=== PATIENT | male | born 1980 | race Caucasian/White ===

== ENCOUNTER 2016-07-02 15:47 | Emergency (ER) | payer MEDICAID, OTHER ==
[~2016-07-02 15:47] MED LIST: NEOMY SULF/POLYMYX B SULF/HC 10ML OTIC SOLUTION EACHEAR SCH
[2016-07-02 15:58] VITALS: BP 131/90; PULSE 77; RESP 16; TEMP 98.2; O2SAT 96
--- NOTE | 2016-07-02 16:11 | EDPHY ---
H & P Time Seen by Provider: 07/02/16 16:05 HPI/ROS: CHIEF COMPLAINT: Left ear painx1 week HISTORY OF PRESENT ILLNESS: 36-year-old homeless male complaining of left otalgia, otorrhea for the past 1 week. No headache. No odontalgia. No dysphagia or odynophagia. No nuchal rigidity. PHYSICAL EXAM (Prior to examination, patient consented to physical exam, hands were washed and my usual and customary physical exam procedures followed) 1) GENERAL: Well-developed, well-nourished, alert and oriented. Appears to be in no acute distress. 2) HEAD: Normocephalic 3) HEENT: sclera anicteric. Right ear clear with no evidence of otitis media or externa. Left ear: Crusted discharge at the EAC meatus. Pain with movement of the auricle. The external auditory canal is edematous with no debris, pain with placement of the speculum. The tympanic membrane is grossly intact with no evidence of otitis media. The mastoid bilaterally nontender non boggy. 4) LUNGS: Breathing comfortably. Smoking Status: Current every day smoker Constitutional: Initial Vital Signs Temperature (C) 36.8 C 07/02/16 15:56 Heart Rate 77 07/02/16 15:56 Respiratory Rate 16 07/02/16 15:56 Blood Pressure 131/90 H 07/02/16 15:56 O2 Sat (%) 96 07/02/16 15:56 O2 Delivery Mode Room Air Allergies/Adverse Reactions: No Allergies Allergy (Unknown, Verified 07/02/16 15:55) Home Medications: Medication Instructions Recorded Neomy Sulf/Polymyx B Sulf/Hc 3 drops EACHEAR QID #1 bottle 07/02/16 [Cortisporin Otic (RX)] MDM/Departure - MDM ED Course/Re-evaluation: This is a homeless male with evidence of left otitis externa. No evidence of left otitis media. No evidence of malignant otitis externa. Doubt mastoiditis. He is prescribed Cortisporin otic which is filled via the hospital [facility]. [facility]. Usual customary ENT precautions provided - Depart Disposition: Home, Routine, Self-Care Clinical Impression: Left otitis externa Qualifiers: Otitis externa type: other infective Chronicity: acute Qualifier Code: (H60.392 ) Other infective otitis externa, left ear Condition: Good Instructions: Otitis Externa (ED) Prescriptions: Neomy Sulf/Polymyx B Sulf/Hc [Cortisporin Otic (RX)] 3 drops EACHEAR QID #1 bottle Referrals: [facility] [Outside] - 1-2 days without fail
== END 2016-07-02 16:46 | disposition home or self-care (01) ==
DX: H60.392 Other infective otitis externa, left ear (principal); F17.200 Nicotine dependence, unspecified, uncomplicated

== ENCOUNTER 2016-10-29 04:45 | Emergency (ER) | payer MEDICAID ==
[2016-10-29 04:52] VITALS: BP 143/83; PULSE 89; RESP 16; TEMP 98.2; O2SAT 91
[2016-10-29] MEDS ORDERED: chlordiazePOXIDE 25 MG CAP ONE (05:08)
[2016-10-29] MEDS ORDERED: CHLORDIAZEPOXIDE 25MG PREPK#6 BTL TAKEHOME ONE ×2 (05:09→05:12)
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
[2016-10-29] MEDS ORDERED: chlordiazePOXIDE 25 MG CAP PO ONE (05:12)
== END 2016-10-29 05:15 | disposition home or self-care (01) ==
DX: F10.230 Alcohol dependence with withdrawal, uncomplicated (principal); F17.200 Nicotine dependence, unspecified, uncomplicated

== ENCOUNTER 2016-12-05 18:06 | Emergency (ER) | payer MEDICAID ==
--- NOTE | 2016-12-05 18:27 | CPEKG ---
Heart Rate: 93 RR Interval: 645 P-R Interval: 152 QRSD Interval: 104 QT Interval: 356 QTC Interval: 443 P Snyder: 66 QRS Snyder: 31 T Wave Snyder: 43 EKG Severity - NORMAL ECG - EKG Impression: SINUS RHYTHM Electronically Signed By: Ayala Monroy 05-Dec-2016 22:49:29
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
[2016-12-05 18:52] VITALS: BP 123/89; PULSE 90; RESP 16; TEMP 97.3; O2SAT 90
== END 2016-12-05 18:54 | disposition home or self-care (01) ==
LOC: EDUNIT#
DX: F10.129 Alcohol abuse with intoxication, unspecified (principal); F17.200 Nicotine dependence, unspecified, uncomplicated

== ENCOUNTER 2017-04-22 22:19 | Emergency (ER) | payer MEDICAID ==
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
[2017-04-22 22:41] VITALS: BP 136/89; PULSE 78; RESP 18; TEMP 98.4; O2SAT 95
== END 2017-04-22 22:45 | disposition home or self-care (01) ==
DX: F10.129 Alcohol abuse with intoxication, unspecified (principal); F17.200 Nicotine dependence, unspecified, uncomplicated

== ENCOUNTER 2017-07-25 21:10 | Emergency (ER) | payer MEDICAID ==
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
[2017-07-25 21:26] VITALS: RESP 18; TEMP 98.1
[2017-07-26] MEDS ORDERED: CHLORDIAZEPOXIDE 25MG PREPK#6 BTL TAKEHOME ONE (05:19)
[2017-07-26 05:24] VITALS: BP 113/60; PULSE 101; O2SAT 94
== END 2017-07-26 05:24 | disposition home or self-care (01) ==
LOC: EDUNIT#
DX: S00.81XA Abrasion of other part of head, initial encounter (principal); F10.920 Alcohol use, unspecified with intoxication, uncomplicated; F17.200 Nicotine dependence, unspecified, uncomplicated; V48.6XXA Car passenger injured in noncollision transport accident in traffic accident, initial encounter; Y92.410 Unspecified street and highway as the place of occurrence of the external cause; Y99.8 Other external cause status

== ENCOUNTER 2017-07-31 19:59 | Emergency (ER) | payer MEDICAID ==
--- NOTE | 2017-07-31 19:47 | EDPHY ---
Medical Decision Making ED Course/Re-evaluation: CHIEF COMPLAINT: Psychiatric evaluation HISTORY OF PRESENT ILLNESS: must have 4 elements: Location, Quality, Severity , Duration, Timing, Context, Modifying Factors, Associated Signs and Symptoms REVIEW OF SYSTEMS: A 10 point review of systems was performed and is negative with the exception of the elements mentioned in the history of present illness. PHYSICAL EXAM: General Appearance: Alert, well hydrated, appropriate, and non-toxic appearing. Head: Atraumatic without scalp tenderness or obvious injury Eyes: Pupils equal, round, reactive to light and accommodation, EOMI, no trauma , no injection. Ears: Clear bilaterally, no perforation, normal landmarks Nose: Atraumatic, no rhinorrhea, clear. Throat: There is no erythema or exudates, no lesions, normal tonsils, mucus membranes moist. Neck: Supple, 2+ carotid upstroke, nontender, no lymphadenopathy. Respiratory: No retractions, no distress, no wheezes, and no accessory muscle use. Lungs are clear to auscultation bilaterally. Cardiovascular: Regular rate and rhythm, no murmurs, rubs, or gallops. Bilateral carotid, radial, dorsalis pedis, and posterior tibial pulses intact. Good capillary refill all extremities. Gastrointestinal: Abdomen is soft, nontender, non-distended, no masses, no rebound, no guarding, no peritoneal signs. Musculoskeletal: Normal active ROM of all extremities, atraumatic. Neurological: Alert, appropriate, and interactive. The patient has normal DTRs and non-focal cranial nerves, motor, sensory, and cerebellar exam. Skin: No rashes, good turgor, no nodules on palpation. Past medical history: Past surgical history: Family history: Social history: DIFFERENTIAL DIAGNOSIS: The differential diagnosis for the patient's depression included but was not limited to functional and major depression, situational depression, medication side effect, drugs, and alcohol abuse. MEDICAL DECISION MAKING: Patient is in no acute distress and is hemodynamically stable. We are awaiting psychiatric team's evaluation. Patient has known history of psychiatric disorders and is here for evaluation.
[2017-07-31] MEDS ORDERED: HALOPERIDOL LACT 5 MG/ML INJ ONE (20:10)
[2017-07-31] MEDS ORDERED: HALOPERIDOL LACT 5 MG/ML INJ IM ONE (20:11)
--- NOTE | 2017-07-31 20:13 | EDPHY ---
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 PSH- R FEMUR W/ HARDWARE, RECONSTRUCTIVE JAW, SAMANTHA--- ALL R/T TRAUMA - Social History Smoking Status: Current every day smoker Time Seen by Provider: 07/31/17 20:03 HPI/ROS: CHIEF COMPLAINT: M1 suicidal ideation HISTORY OF PRESENT ILLNESS: 37-year-old male history of alcoholism arrives from [facility] for acute agitation, suicidal ideation, suspected alcohol intoxication. He is agitated, yelling, cursing, threatening physical violence. PRIMARY CARE PROVIDER: REVIEW OF SYSTEMS: A ten point review of systems was performed and is negative with the exception of the items mentioned in the HPI PAST MEDICAL & SURGICAL HISTORY: History of traumatic brain injury. History of alcoholism. SOCIAL HISTORY: Admits to positive alcohol use PHYSICAL EXAM (Prior to examination, patient consented to physical exam, hands were washed and my usual and customary physical exam procedures followed) 1) GENERAL: Well-developed, well-nourished, alert and oriented. Agitated, 2) HEAD: Normocephalic, atraumatic, no raccoon eyes no Galo sign. 3) HEENT: Pupils equal, round, reactive to light bilaterally. Sclera anicteric. 4) NECK: Full range of motion, no meningeal signs. 5) LUNGS: Clear auscultation bilaterally, no wheezes, no rhonchi, no retractions. 6) HEART: Regular rate and rhythm, no murmur, no heave, no gallop. 7) ABDOMEN: No guarding, no rebound, no focal tenderness, negative McBurney's, negative Ellington's, negative Rovsing's, negative peritoneal sign, 8) MUSCULOSKELETAL: Moving all extremities, no focal areas of tenderness, no obvious trauma. No peripheral edema or discoloration. 9) BACK: No CVA tenderness, no midline vertebral tenderness, no fluctuance, no step-off, no obvious trauma, no visual or palpable abnormality. 10) SKIN: No rash, no petechiae. 11) Psychiatric: Patient is oriented X 3, agitated cursing yelling. DIFFERENTIAL DIAGNOSIS: In no particular orderincluding but not limited to hypoglycemia, infectious process, electrolyte abnormality, head injury and intoxicants. (Bethanie Luna) Constitutional: Initial Vital Signs Temperature (C) 36.5 C 07/31/17 20:22 Heart Rate 122 H 07/31/17 20:22 Respiratory Rate 18 07/31/17 20:22 Blood Pressure 141/94 H 07/31/17 20:22 O2 Sat (%) 93 07/31/17 20:22 O2 Delivery Mode Room Air Allergies/Adverse Reactions: No Allergies Allergy (Unknown, Verified 07/25/17 21:26) Home Medications: Medication Instructions Recorded Albuterol [Ventolin Hfa Inhaler] 200 puffs 07/25/17 Medical Decision Making ED Course/Re-evaluation: 8:12 p.m.: This patient is agitated, yelling, threatening physical violence against myself and the ER staff. IM Haldol will be ordered. He appears to be acutely intoxicated as well. He smells of alcohol. 9:43 p.m.: Alcohol level 436 at this time. He will need to sober in the emergency department prior to mental health evaluation 1:00 a.m.: Care turned over to Dr. Stoddard at this time, patient calm, sleeping, sobering (Behtanie Luna) Other Provider: 0100 care assumed by me from SUZI Luna pending sober evaluation. [address] patient signed out to Dr. Gregorio pending sober evaluation. No issues during my care this patient over. (Isaac Stoddard) I assumed care of this patient from Dr. Stoddard at 7:00 a.m.. Patient has continued to sober throughout my shift. We have been watching him to ensure he does not develop alcohol withdrawal. Urine sample was obtained and the patient's urine tox is negative. The patient had a repeat breath performed at 3:00 p.m.. Alcohol level is 0.090. Patient will need to continue to sober. He will have evaluation by mental health when his alcohol level is less than 0.050. Patient's care will be assumed by Dr. Mahan at 4:00 p.m.. (Becki Gregorio) - Data Points Laboratory Results: Laboratory Results 07/31/17 20:50 07/31/17 20:50 08/01/17 10:55 Urine Opiates Screen NEGATIVE (NEGATIVE) Urine Barbiturates NEGATIVE (NEGATIVE) Ur Phencyclidine Scrn NEGATIVE (NEGATIVE) Ur Amphetamine Screen NEGATIVE (NEGATIVE) U Benzodiazepines Scrn NEGATIVE (NEGATIVE) Urine Cocaine Screen NEGATIVE (NEGATIVE) U Marijuana (THC) Screen NEGATIVE (NEGATIVE) Medications Given: Discontinued Medications Haloperidol Lactate (Haldol Injection) 10 mg IM EDNOW ONE Stop: 07/31/17 20:12 Last Admin: 07/31/17 20:00 Dose: 10 mg Departure - Departure Referrals: Patient,NotPresent [Unknown] - As per Instructions
[2017-07-31 21:21] LABS: PLATELET COUNT 165 10^3/uL (150-400)
[2017-08-01 08:28] VITALS: RESP 16; O2SAT 98
[2017-08-01 18:57] VITALS: BP 112/44; PULSE 89; TEMP 96.8
== END 2017-08-01 18:56 | disposition home or self-care (01) ==
LOC: EDUNIT#
DX: F10.20 Alcohol dependence, uncomplicated (principal); F17.200 Nicotine dependence, unspecified, uncomplicated
CPT/HCPCS: 80305; G0480; J1630

== ENCOUNTER 2017-08-03 23:35 | Emergency (ER) | payer MEDICAID ==
--- NOTE | 2017-08-03 23:49 | EDPHY ---
H & P Time Seen by Provider: 08/03/17 23:44 HPI/ROS: CHIEF COMPLAINT: Alcohol intoxication HISTORY OF PRESENT ILLNESS: The patient is brought in by police after being found in a coffee shop bathroom with altered mental status. The patient smells of alcohol and has multiple prior ER visits for alcohol intoxication. He was unable to walk. He is brought in without any complaint. Patient denies any injuries, denies loss of consciousness, denies any recent trauma. Patient denies coingestion, patient denies suicidal or homicidal behavior. REVIEW OF SYSTEMS: Constitutional: No fever, no chills. Eyes:No visual changes. ENT: No sore throat. Respiratory: No cough, no shortness of breath. Cardiac: No chest pain. Gastrointestinal: No abdominal pain, vomiting or diarrhea. Genitourinary: No hematuria. Musculoskeletal: No back pain. Skin: No rashes. Neurological: No headache. PAST MEDICAL HISTORY: Multiple ER visits for alcohol-related complaints PAST SURGICAL HISTORY: None SOCIAL HISTORY: Alcohol abuse PHYSICAL EXAM: General Appearance: Alert, well hydrated, appropriate, and non-toxic appearing. Head: Atraumatic without scalp tenderness or obvious injury Eyes: Pupils equal, round, reactive to light, no injection. Ears: Clear bilaterally, no perforation, normal landmarks Nose: Atraumatic, no rhinorrhea, clear. Throat: mucus membranes moist. Neck: Supple, non-tender, no lymphadenopathy. Respiratory: No retractions, no distress, no wheezes, and no accessory muscle use. Lungs are clear to auscultation bilaterally. Cardiovascular: Regular rate and rhythm, no murmurs, rubs, or gallops. Gastrointestinal: Abdomen is soft, non-tender, non-distended Musculoskeletal: Normal active ROM of all extremities, atraumatic. Neurological: Alert, appropriate, and interactive. Moves all extremities equally. Skin: No rashes, good turgor, no nodules on palpation. MEDICAL DECISION MAKING: I serially examined this patient since the patient's arrival here in the emergency department. The patient continues to become more and more sober with each examination. I serially questioned the patient and the patient's story given initially has not changed. The patient still denies any trauma, any head injury, and any illicit drug use. At this point, the patient is walking the department freely and is clinically sober. The [facility] is not [facility] the [facility]. Thus when he was able to walk he was discharged to the street. 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 PSH- R FEMUR W/ HARDWARE, RECONSTRUCTIVE JAW, SAMANTHA--- ALL R/T TRAUMA - Social History Smoking Status: Current every day smoker Constitutional: Initial Vital Signs Temperature (C) 36.3 C 08/03/17 23:40 Heart Rate 86 08/03/17 23:40 Respiratory Rate 16 08/03/17 23:40 Blood Pressure 153/85 H 08/03/17 23:40 O2 Sat (%) 90 L 08/03/17 23:40 O2 Delivery Mode Room Air O2 (L/minute) 1 Allergies/Adverse Reactions: No Allergies Allergy (Unknown, Verified 08/03/17 23:52) Home Medications: Medication Instructions Recorded Albuterol [Ventolin Hfa Inhaler] 200 puffs IH 07/25/17 Departure - Departure Disposition: Home, Routine, Self-Care Clinical Impression: Alcoholic intoxication Condition: Good Instructions: Alcohol Intoxication (ED), Abuse of Alcohol (ED) Referrals: [facility],. [Clinic] - As per Instructions
[2017-08-03 23:52] VITALS: RESP 16; TEMP 97.3
[2017-08-04 05:56] VITALS: BP 128/77; PULSE 86; O2SAT 94
== END 2017-08-04 05:55 | disposition home or self-care (01) ==
DX: F10.129 Alcohol abuse with intoxication, unspecified (principal); F17.200 Nicotine dependence, unspecified, uncomplicated

== ENCOUNTER 2017-08-04 10:30 | Emergency (ER) | payer MEDICAID ==
[2017-08-04 10:35] VITALS: BP 143/100; PULSE 95; RESP 18; TEMP 97.2
--- NOTE | 2017-08-04 10:36 | EDPHY ---
H & P Stated Complaint: ETOH, [facility] hold Time Seen by Provider: 08/04/17 10:32 HPI/ROS: CHIEF COMPLAINT: "I've been drinking" HISTORY OF PRESENT ILLNESS: 37-year-old homeless male arrives via police for complaints of alcohol use. He denies suicidal or homicidal ideation. Patient has been seen the ER previously for similar most recently 24 hr ago. Denies trauma. Denies complaints of pain. Denies fall. Denies self-injury. Denies chest pain. Denies dyspnea. Denies nausea or vomiting. REVIEW OF SYSTEMS: A ten point review of systems was performed and is negative with the exception of the items mentioned in the HPI PAST MEDICAL & SURGICAL HISTORY: Alcoholism SOCIAL HISTORY: Admits to positive alcohol PHYSICAL EXAM (Prior to examination, patient consented to physical exam, hands were washed and my usual and customary physical exam procedures followed) 1) GENERAL: Poorly kept, smells of alcohol, answering questions appropriately, observed ambulating from the ambulance [place] with stable steady gait without assistance 2) HEAD: Normocephalic, atraumatic 3) HEENT: Pupils equal, round, reactive to light bilaterally. Sclera anicteric. No raccoon eyes no Galo sign. Nasopharynx, oropharynx, clear, no lesions. Ears bilaterally with normal tympanic membranes. 4) NECK: Full range of motion, no meningeal signs. 5) LUNGS: Clear auscultation bilaterally, no wheezes, no rhonchi, no retractions. 6) HEART: Regular rate and rhythm, no murmur, no heave, no gallop. 7) ABDOMEN: No guarding, no rebound, no focal tenderness, 8) MUSCULOSKELETAL: Moving all extremities, no focal areas of tenderness 9) BACK: No visual or palpable abnormality. 10) SKIN: No rash, no petechiae. 11) Psychiatric: Patient is oriented X 3, there is no agitation. 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 PSH- R FEMUR W/ HARDWARE, RECONSTRUCTIVE JAW, SAMANTHA--- ALL R/T TRAUMA - Social History Smoking Status: Current every day smoker Constitutional: Initial Vital Signs Temperature (C) 36.2 C 08/04/17 10:32 Heart Rate 95 08/04/17 10:32 Respiratory Rate 18 08/04/17 10:32 Blood Pressure 143/100 H 08/04/17 10:32 O2 Sat (%) 95 08/04/17 10:32 O2 Delivery Mode Room Air O2 (L/minute) 2 Allergies/Adverse Reactions: No Allergies Allergy (Unknown, Verified 08/03/17 23:52) Home Medications: Medication Instructions Recorded Albuterol [Ventolin Hfa Inhaler] 200 puffs 07/25/17 Medical Decision Making ED Course/Re-evaluation: Care of patient under supervision of primary Supervising physician Dr Rodarte. At 11:13 a.m. The patient is awake and alert oriented person place time events, clear speech pattern, stable steady gait, clinically sober, answering questions appropriately, pleasant, calm, laughing, walked out of the emergency department. Doubt delirium tremens. he did not want to wait for aftercare instructions. Departure - Departure Disposition: Home, Routine, Self-Care Clinical Impression: Alcoholic intoxication Qualifiers: Complication of substance-induced condition: uncomplicated Qualified Code(s): F10.920 - Alcohol use, unspecified with intoxication, uncomplicated Condition: Good Instructions: Abuse of Alcohol (ED) Referrals: [facility],. [Clinic] - As per Instructions
[2017-08-04 10:44] VITALS: O2SAT 97
== END 2017-08-04 11:23 | disposition home or self-care (01) ==
DX: F10.920 Alcohol use, unspecified with intoxication, uncomplicated (principal); F17.200 Nicotine dependence, unspecified, uncomplicated

== ENCOUNTER 2017-08-04 15:19 | Emergency (ER) | payer MEDICAID ==
--- NOTE | 2017-08-04 15:24 | EDPHY ---
H & P Smoking Status: Current every day smoker Time Seen by Provider: 08/04/17 15:21 HPI/ROS: CHIEF COMPLAINT: Found sleeping at [facility] HISTORY OF PRESENT ILLNESS: 37-year-old male history of homelessness, alcoholism, was seen the ER few hours ago for acute alcohol use, walked out of the ER. He arrives via police, not on [facility] hold after he was found sleeping at [facility]. He admits to continued alcohol use. He denies suicidal homicidal ideation. Denies hallucination. Denies trauma or fall. He does not want to go to the [facility]. REVIEW OF SYSTEMS: A ten point review of systems was performed and is negative with the exception of the items mentioned in the HPI PAST MEDICAL & SURGICAL HISTORY: Homelessness. Alcoholism. SOCIAL HISTORY:Positive alcohol use PHYSICAL EXAM (Prior to examination, patient consented to physical exam, hands were washed and my usual and customary physical exam procedures followed) 1) GENERAL: Poorly kept, smells of alcohol 2) HEAD: Normocephalic, atraumatic 3) HEENT: Pupils equal, round, reactive to light bilaterally. Sclera anicteric. No raccoon eyes no Galo sign. No rhinorrhea no otorrhea. 4) NECK: Full range of motion, no meningeal signs. 5) LUNGS: Clear auscultation bilaterally, no wheezes, no rhonchi, no retractions. 6) HEART: Regular rate and rhythm, no murmur, no heave, no gallop. 7) ABDOMEN: No guarding, no rebound, no focal tenderness, 8) MUSCULOSKELETAL: Moving all extremities, no focal areas of tenderness, no obvious trauma. No peripheral edema or discoloration. 9) BACK: , no obvious trauma, no visual or palpable abnormality. 10) SKIN: No rash, no petechiae. 11) Psychiatric: Patient is oriented X 3, there is no agitation. DIFFERENTIAL DIAGNOSIS: In no particular include but limited to polysubstance abuse, acute alcohol use, trauma (Jeremy,Bethanie Edwina) Constitutional: Initial Vital Signs Temperature (C) 36.7 C 08/04/17 15:25 Heart Rate 96 08/04/17 15:25 Blood Pressure 129/97 H 08/04/17 15:25 O2 Sat (%) 95 08/04/17 15:25 O2 Delivery Mode Room Air Allergies/Adverse Reactions: No Allergies Allergy (Unknown, Verified 08/03/17 23:52) Home Medications: Medication Instructions Recorded Albuterol [Ventolin Hfa Inhaler] 200 puffs IH 07/25/17 MDM/Departure - [facility] ED Course/Re-evaluation: 3:22 p.m.: This patient is not [facility] hold. He does not want to go to the [facility]. He admits to alcohol use. Doubt delirium tremens. No seizure. No signs of trauma. No indication for imaging or diagnostic studies. He will be observed for a period of time in the ER 3:36 p.m.: At this time the patient observed ambulating stable steady gait, clear speech pattern, alert oriented person place time events. He would like to be discharged. He does not want to wait for aftercare instructions. He was observed ambulating out of the emergency department. (Bethanie Luna) - Depart Disposition: Home, Routine, Self-Care Clinical Impression: Alcohol use Condition: Good Instructions: Abuse of Alcohol (ED) Additional Instructions: Please consider long-term sobriety from alcohol. Referrals: [facility],. [Clinic] - As per Instructions
[2017-08-04 15:29] VITALS: BP 129/97; PULSE 96; TEMP 98.1; O2SAT 95
== END 2017-08-04 15:39 | disposition home or self-care (01) ==
DX: F10.929 Alcohol use, unspecified with intoxication, unspecified (principal); F17.200 Nicotine dependence, unspecified, uncomplicated

== ENCOUNTER 2017-08-05 15:30 | Emergency (ER) | payer MEDICAID ==
--- NOTE | 2017-08-05 16:08 | EDPHY ---
H & P Smoking Status: Current every day smoker Time Seen by Provider: 08/05/17 15:49 HPI/ROS: CHIEF COMPLAINT: Alcohol intoxication HISTORY OF PRESENT ILLNESS: 37-year-old male presents to the emergency department by ambulance with acute alcohol intoxication. The patient has a known history of alcoholism. He has been here multiple times in the last few days. Patient denies suicidal or homicidal ideation. He admits to drinking a large amount of alcohol today. He denies any other substance abuse. No reported trauma. Denies chest pain or difficulty breathing. Denies abdominal pain. Denies headache. Denies neck or back pain. REVIEW OF SYSTEMS: Constitutional: No fever, no chills. Eyes: No double or blurry vision. ENT: No sore throat. Respiratory: No cough, no shortness of breath. Cardiac: No chest pain. Gastrointestinal: No abdominal pain, vomiting or diarrhea. Genitourinary: No dysuria. Musculoskeletal: No neck or back pain. Skin: No rashes. Neurological: No headache. (Herlinda Lunsford) Past Medical/Surgical History: Alcoholism (Herlinda Lunsford) Social History: Homeless (Herlinda Lunsford) Physical Exam: General Appearance: Alert, no distress. Heart rate 122, 90% room air, afebrile. Smells strongly of alcohol. Slurring words. No visible signs of trauma to his head. Eyes: Pupils equal and round. Extraocular motions are all intact. ENT: Mouth: Mucous membranes moist. Respiratory: No wheezing, rhonchi, or rales, lungs are clear to auscultation. Cardiovascular: Regular rate and rhythm. Gastrointestinal: Abdomen is soft and nontender, no masses, no rebound or guarding, bowel sounds normal. Neurological: Uncooperative, cannot determine. Skin: Warm and dry, no rashes. Musculoskeletal: Nontender to palpate along the cervical, thoracic or lumbar spine. Neck is supple. Extremities: Full range of motion and no peripheral edema. Psychiatric: no agitation. (Herlinda Lunsford) Constitutional: Initial Vital Signs Temperature (C) 36.4 C 08/05/17 15:44 Heart Rate 122 H 08/05/17 15:44 Respiratory Rate 16 08/05/17 15:44 Blood Pressure 135/95 H 08/05/17 15:44 O2 Sat (%) 90 L 08/05/17 15:44 O2 Delivery Mode Room Air O2 (L/minute) 3 Allergies/Adverse Reactions: No Allergies Allergy (Unknown, Verified 08/03/17 23:52) Home Medications: Medication Instructions Recorded Albuterol [Ventolin Hfa Inhaler] 200 puffs IH 07/25/17 Medical Decision Making - Diagnostics Imaging Results: Imaging Impressions Chest X-Ray 08/05/17 16:43 Impression: Poor inspiratory effort. Mild atelectasis or early infiltrate in the left lower lobe. ED Course/Re-evaluation: 37-year-old male presents to the emergency department with alcohol intoxication. The patient is not welcome at the [facility]. When the patient is clinically sober and can ambulate unassisted without complaints, he will be discharged. (Herlinda Lunsford) Differential Diagnosis: Altered mental status including but not limited to hypoglycemia, infectious process, electrolyte abnormality, head injury and intoxicants. (Herlinda Lunsford) Other Provider: PHYSICIAN DOCUMENTATION: The patient was evaluated and managed by the Physician Hired Worker and myself. I have reviewed the chart and agree with the findings and plan of care as documented. In addition, I examined the patient myself at 1642. History confirmed as history of alcohol ingestion. Physical findings as follows: Slurred speech, sleepy but awakens to voice. Was initially hypoxic, plan for chest x-ray. 1714: Chest x-ray personally interpreted shows hypoventilation otherwise negative. Plan for serial examinations until clinically sober. 2005: Alert, ambulatory, no medical complaints, not hypoxic. Not ataxic. Stable for discharge. I am the secondary supervising physician. (David Davis) Departure - Departure Disposition: Home, Routine, Self-Care Clinical Impression: Alcoholic intoxication Qualifiers: Complication of substance-induced condition: uncomplicated Qualified Code(s): F10.920 - Alcohol use, unspecified with intoxication, uncomplicated Condition: Good Instructions: Alcohol Intoxication (ED), Abuse of Alcohol (ED) Additional Instructions: Return if you develop change in symptoms or if you feel worse in any way. Referrals: [facility] [Outside] - As per Instructions
[2017-08-05 20:01] VITALS: BP 124/71; PULSE 98; RESP 18; TEMP 98.8; O2SAT 92
== END 2017-08-05 20:05 | disposition home or self-care (01) ==
LOC: EDUNIT#
DX: F10.920 Alcohol use, unspecified with intoxication, uncomplicated (principal); F17.200 Nicotine dependence, unspecified, uncomplicated

== ENCOUNTER 2017-08-07 16:54 | Emergency (ER) | payer MEDICAID ==
--- NOTE | 2017-08-07 16:56 | EDPHY ---
H & P Smoking Status: Current every day smoker Time Seen by Provider: 08/07/17 16:55 HPI/ROS: CHIEF COMPLAINT: Suspected alcohol use HISTORY OF PRESENT ILLNESS: 37-year-old male history of alcoholism, homelessness, arrives via police after was found sleeping outdoors admitted alcohol use. Patient denies suicidal or homicidal ideation. Denies hallucination. Admits to alcohol use. No trauma. No fall. No complaints of pain or discomfort. REVIEW OF SYSTEMS: A ten point review of systems was performed and is negative with the exception of the items mentioned in the HPI PAST MEDICAL & SURGICAL HISTORY: Alcoholism SOCIAL HISTORY: Admits to positive alcohol use PHYSICAL EXAM (Prior to examination, patient consented to physical exam, hands were washed and my usual and customary physical exam procedures followed) 1) GENERAL: Foul smelling, dirty, cursing. He was observed ambulating stable steady gait without assistance. He has clear speech pattern. Awake alert and oriented to person, place, time, events 2) HEAD: Normocephalic, atraumatic. No raccoon eyes no Galo sign. No rhinorrhea. No otorrhea. No hemotympanum. 3) HEENT: Pupils equal, round, reactive to light bilaterally 4) NECK: Full range of motion, no meningeal signs. 5) LUNGS: Clear auscultation bilaterally 6) HEART: Regular rate and rhythm, no murmur, no heave, no gallop. 7) ABDOMEN: [No guarding, no rebound, no focal tenderness,, 8) MUSCULOSKELETAL: Moving all extremities, no focal areas of tenderness, no obvious trauma. 9) BACK: , no midline vertebral tenderness 10) SKIN: No rash, no petechiae. 11) Psychiatric: Patient is oriented X 3, there is no agitation. DIFFERENTIAL DIAGNOSIS: In no particular orderincluding but not limited to hypoglycemia, infectious process, electrolyte abnormality, head injury and intoxicants. (Bethanie Luna) Constitutional: Initial Vital Signs Temperature (C) 36.8 C 08/07/17 16:56 Heart Rate 72 08/07/17 16:56 Respiratory Rate 16 08/07/17 16:56 Blood Pressure 126/80 H 08/07/17 16:56 O2 Sat (%) 92 08/07/17 16:56 O2 Delivery Mode Room Air Allergies/Adverse Reactions: No Allergies Allergy (Unknown, Verified 08/03/17 23:52) Home Medications: Medication Instructions Recorded Albuterol [Ventolin Hfa Inhaler] 200 puffs IH 07/25/17 MDM/Departure - [facility] ED Course/Re-evaluation: I reviewed this patient's old medical records. I am familiar with this patient. At this time he is observed ambulating stable steady gait, clear speech pattern awake alert oriented person place time events. He is clinically sober at this time. He is not welcome at the [facility]. He would like to be discharged. He was observed walking out of the emergency department. Care of patient under supervision of secondary supervising physician Dr Rodarte . (Bethanie Luna) PHYSICIAN DOCUMENTATION: The patient was evaluated and managed by the Physician Equipment Services Associate. My co- signature indicates that I have reviewed this chart and I agree with the findings and plan of care as documented. I am the secondary supervising physician. (Austin Rodarte) - Depart Disposition: Home, Routine, Self-Care Clinical Impression: Alcohol use Condition: Good Instructions: Abuse of Alcohol (ED) Additional Instructions: Please consider long-term sobriety. Referrals: [facility],. [Clinic] - As per Instructions
[2017-08-07 16:58] VITALS: BP 126/80; PULSE 72; RESP 16; TEMP 98.2; O2SAT 92
== END 2017-08-07 17:06 | disposition home or self-care (01) ==
DX: F10.99 Alcohol use, unspecified with unspecified alcohol-induced disorder (principal); F17.200 Nicotine dependence, unspecified, uncomplicated

== ENCOUNTER 2017-08-07 20:25 | Emergency (ER) | payer MEDICAID ==
--- NOTE | 2017-08-07 21:52 | EDPHY ---
General - History Smoking Status: Current every day smoker Time Seen by Provider: 08/07/17 20:48 Narrative: CHIEF COMPLAINT: Alcohol intoxication HISTORY OF PRESENT ILLNESS: Patient arrives by EMS with reports of acute alcohol intoxication. He does admit to drinking multiple sources of alcohol today but does not remember any quantity. He has been drinking throughout the day since discharge home from this facility. He has no complaints of pain of any kind. He is only asking for food and something to drink. He says that he does not want to be here. REVIEW OF SYSTEMS: Ten systems reviewed and are negative unless otherwise noted in the HPI PCP: [facility] SPECIALISTS: None PAST MEDICAL HISTORY: Alcohol abuse PAST SURGICAL HISTORY: Denies any surgeries SOCIAL HISTORY: Daily alcohol use. Occasional smoker. Currently homeless FAMILY HISTORY: Noncontributory EXAMINATION General Appearance: Alert, no distress. Well-developed well-nourished Head: normocephalic, atraumatic Eyes: Pupils equal and round, no conjunctival pallor or injection ENT, Mouth: Mucous membranes moist Neck: Normal inspection, supple, non-tender Respiratory: Mild rhonchi. No wheezing or crackles Cardiovascular: Regular rate and rhythm. no murmur Gastrointestinal: Abdomen is soft and nontender Back: non-tender, no bony abnormalities Neurological: A&O, nonfocal, normal gait Skin: Warm and dry, no rash no petechiae or purpura Extremities: Nontender, no pedal edema Psychiatric: Mood and affect normal DIFFERENTIAL DIAGNOSES: Including but not limited to acute alcohol intoxication, chronic alcohol dependency, alcohol abuse MDM: 9:00 p.m. Acute alcohol intoxication in an alcoholic patient. He is well-known to this emergency department was seen earlier today. No complaints of any kind other than asking for food. He does have a strong odor of alcohol about him. He was at 1st refusing a breathalyzer treatment, but he is not consented to do this. He has been agitated and requiring multiple security officers. I informed him that he cannot behavior like this and he apologize and agrees to rest 10:30 p.m. Patient is resting comfortably in his room. 11:30 p.m. At This point patient is ambulatory emergency depart without assistance. He is not slurring his words. He appears clinically sober. I do feel he is clinically sober enough for discharge home. He has no difficulty conversing. Patient is not allowed to be sent to the [facility] does not wish to stop drinking, thus he will be discharged home to his own care. SUPERVISION: Patient was independently examined, but I discussed the case with my secondary supervising physician Dr. Rojas ([facility]) Medical Decision Making: I did not see this patient while he was in the emergency department. However his care was discussed with the PA while the patient was in the department. I agree with treatment plan and management (Gilles Rojas) - Objective Vital Signs: Initial Vital Signs Temperature (C) 36.4 C 08/07/17 20:31 Heart Rate 103 H 08/07/17 20:31 Respiratory Rate 18 08/07/17 20:31 Blood Pressure 136/97 H 08/07/17 20:31 O2 Sat (%) 90 L 08/07/17 20:31 O2 Delivery Mode Room Air O2 (L/minute) 2 Allergies/Adverse Reactions: No Allergies Allergy (Unknown, Verified 08/08/17 03:21) Home Medications: Medication Instructions Recorded Albuterol [Ventolin Hfa Inhaler] 200 puffs 07/25/17 Departure - Departure Disposition: Home, Routine, Self-Care Clinical Impression: Alcohol dependence, Alcohol abuse Condition: Good Instructions: Abuse of Alcohol (ED) Additional Instructions: 1. [facility] Referrals: [facility],. [Clinic] - As per Instructions
[2017-08-07 23:48] VITALS: BP 131/74; PULSE 90; RESP 16; TEMP 97.9; O2SAT 92
== END 2017-08-07 23:46 | disposition home or self-care (01) ==
DX: F10.229 Alcohol dependence with intoxication, unspecified (principal); F17.200 Nicotine dependence, unspecified, uncomplicated

== ENCOUNTER 2017-08-08 03:16 | Emergency (ER) | payer MEDICAID ==
[2017-08-08 03:22] VITALS: BP 135/67; PULSE 75; RESP 16; TEMP 98.2; O2SAT 96
--- NOTE | 2017-08-08 03:24 | EDPHY ---
H & P Stated Complaint: ETOH Time Seen by Provider: 08/08/17 03:24 HPI/ROS: CHIEF COMPLAINT: Intoxication HISTORY OF PRESENT ILLNESS: The patient is 37-year-old homeless man who called police several times stating that he was cold. He has been seen here previously today for intoxication and discharged. He is not welcome at the [facility] and so cannot go there. Police say they have been instructed not to take [facility] to the [facility]. He is ambulatory and has no complaints other than being cold. REVIEW OF SYSTEMS: Constitutional: denies: chills, fever, recent illness, recent injury EENTM: denies: blurred vision, double vision, nose congestion Respiratory: denies: cough, shortness of breath Cardiac: denies: chest pain, irregular heart rate, lightheadedness, palpitations Gastrointestinal/Abdominal: denies: abdominal pain, diarrhea, nausea, vomiting, blood streaked stools Genitourinary: denies: dysuria, frequency, hematuria, pain Musculoskeletal: denies: joint pain, muscle pain Skin: denies: lesions, rash, jaundice, bruising Neurological: denies: headache, numbness, paresthesia, tingling, dizziness, weakness Hematologic/Lymphatic: denies: blood clots, easy bleeding, easy bruising Immunologic/allergic: denies: HIV/AIDS, transplant EXAM: GENERAL: Well-appearing, disheveled HEAD: Atraumatic, normocephalic. EYES: Pupils equal round and reactive to light, extraocular movements intact, sclera anicteric, conjunctiva are normal. ENT: TMs normal, nares patent, oropharynx clear without exudates. Moist mucous membranes. NECK: Normal range of motion, supple without lymphadenopathy or JVD. LUNGS: Breath sounds clear to auscultation bilaterally and equal. No wheezes rales or rhonchi. HEART: Regular rate and rhythm without murmurs, rubs or gallops. ABDOMEN: Soft, nontender, normoactive bowel sounds. No guarding, no rebound. No masses appreciated. BACK: No CVA tenderness, no spinal tenderness, step-offs or deformities EXTREMITIES: Normal range of motion, no pitting or edema. No clubbing or cyanosis. NEUROLOGICAL: Cranial nerves II through XII grossly intact. Normal speech, normal gait. 5/5 strength, normal movement in all extremities, normal sensation PSYCH: Normal mood, normal affect. SKIN: Warm, dry, normal turgor, no visible rashes or lesions. 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 PSH- R FEMUR W/ HARDWARE, RECONSTRUCTIVE JAW, SAMANTHA--- ALL R/T TRAUMA - Family History Significant Family History: No pertinent family hx - Social History Smoking Status: Current every day smoker Alcohol Use: Heavy Drug Use: Marijuana Constitutional: Initial Vital Signs Temperature (C) 36.8 C 08/08/17 03:21 Heart Rate 75 08/08/17 03:21 Respiratory Rate 16 08/08/17 03:21 Blood Pressure 135/67 H 08/08/17 03:21 O2 Sat (%) 96 08/08/17 03:21 O2 Delivery Mode Room Air Allergies/Adverse Reactions: No Allergies Allergy (Unknown, Verified 08/08/17 03:21) Home Medications: Medication Instructions Recorded Albuterol [Ventolin Hfa Inhaler] 200 puffs IH 07/25/17 Medical Decision Making ED Course/Re-evaluation: 3:20 a.m. the patient is able to ambulate. He has no complaints. He is medically clear. He does not wish to stop drinking. He is not welcome at the [facility]. He is not welcome at the [facility]. I will discharge him at this time. Differential Diagnosis: Partial list of the Differential diagnosis considered include but were not limited to; intoxication, polysubstance abuse and although unlikely based on the history and physical exam, I also considered head injury, infection. Departure - Departure Disposition: Home, Routine, Self-Care Clinical Impression: Alcoholic intoxication Qualifiers: Complication of substance-induced condition: uncomplicated Qualified Code(s): F10.920 - Alcohol use, unspecified with intoxication, uncomplicated Condition: Fair Instructions: Alcohol Intoxication (ED) Referrals: NONE *PRIMARY CARE P,. [Primary Care Provider] - As per Instructions
== END 2017-08-08 03:40 | disposition home or self-care (01) ==
DX: F10.920 Alcohol use, unspecified with intoxication, uncomplicated (principal); F17.200 Nicotine dependence, unspecified, uncomplicated

== ENCOUNTER 2017-10-28 22:59 | Emergency (ER) | payer MEDICAID ==
[2017-10-28] MEDS ORDERED: FAMOTIDINE 20 MG TAB PO ONE (23:07)
--- NOTE | 2017-10-28 23:16 | CPEKG ---
Heart Rate: 92 RR Interval: 652 P-R Interval: 152 QRSD Interval: 102 QT Interval: 356 QTC Interval: 441 P Chloride: 58 QRS Chloride: 18 T Wave Chloride: 27 EKG Severity - NORMAL ECG - EKG Impression: SINUS RHYTHM Electronically Signed By: Elvia Arreola 29-Oct-2017 07:35:07
--- NOTE | 2017-10-28 23:28 | EDPHY ---
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 PSH- R FEMUR W/ HARDWARE, RECONSTRUCTIVE JAW, SAMANTHA--- ALL R/T TRAUMA - Social History Smoking Status: Current every day smoker Time Seen by Provider: 10/28/17 23:25 HPI/ROS: HPI: This is a 37-year-old male who presents with Chief Complaint: Alcohol intoxication and chest pain Location: Body Quality: Alcohol intoxication Duration: Today Signs and Symptoms: no fever, no nausea, no vomiting, no hematemesis, no blood in stool, no abdominal bloating, no diarrhea, no back pain, no urinary symptoms , no testicular/groin pain, no indigestion, + chest pain, no shortness of breath Timing: Acute on chronic Severity: 11/20 Context: Patient called EMS from the [employer] parking lot with complaints of anterior chest pain that started 2 days ago. Patient has been drinking vodka today and admits that he drinks Vodka every day. He reports that the chest pain is intermittent in nature. Nothing makes it better or worse. Patient denies any nausea, vomiting, hematemesis, blood in stool, diaphoresis, shortness of breath. Patient denies any suicidal ideation/homicidal ideation. No prior history of cardiac disease. Nurse found a bottle of vodka inside of his pocket. Patient was placed on an [facility] hold by the police. Charge nurse called [facility] and was advised that patient is not allowed to come to [facility] for 2 weeks due to behavioral problems. 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 + marijuana use. Family history noncontributory. CONSTITUTIONAL: Untidy, disheveled adult white male, smells heavily of alcohol , awake and alert, no obvious distress HEENT: Atraumatic and normocephalic, PERRL, EOMI. Nares patent; no rhinorrhea; no nasal mucosal edema. Tympanic membranes clear. Oropharynx clear, no exudate and moist pink mucosa. Airway patent. No lymphadenopathy. No meningismus. Cardiovascular: Normal S1/S2, regular rate, regular rhythm, without murmur rub or gallop. PULMONARY/CHEST: Symmetrical and nontender. Clear to auscultation bilaterally. Good air movement. No accessory muscle usage. ABDOMEN: Soft, nondistended, mild epigastric tenderness, no rebound, no guarding, no peritoneal signs, no masses or organomegaly. No CVAT. EXTREMITIES: 2/2 pulses, strength 5/5, no deformities, no clubbing, no cyanosis or edema. NEUROLOGICAL: no focal neuro deficits. GCS 12. Speech is somewhat garbled and slurred. SKIN: Warm and dry, no erythema. no rash. Good capillary refill. (Aayush,Pinga) Constitutional: Initial Vital Signs Temperature (C) 36.7 C 10/28/17 23:04 Heart Rate 100 10/28/17 23:04 Respiratory Rate 20 10/28/17 23:04 Blood Pressure 120/95 H 10/28/17 23:04 O2 Sat (%) 93 10/28/17 23:04 O2 Delivery Mode Room Air O2 (L/minute) 2 Allergies/Adverse Reactions: No Allergies Allergy (Unknown, Verified 10/28/17 23:09) Home Medications: Medication Instructions Recorded Albuterol [Ventolin Hfa Inhaler] 200 puffs IH 07/25/17 Medical Decision Making - Diagnostics EKG Interpretation: 12 lead EKG: Indication: Chest pain Rhythm: Normal sinus rhythm, rate 92 beats per minute [place]: Normal Intervals: Normal QRS: Normal ST segments: Normal INTERPRETATION: No acute ischemic changes The 12 lead EKG was interpreted by myself and with attending. (Tanna Looney) Imaging Results: Imaging Impressions Chest X-Ray 10/28/17 23:07 Impression: No acute findings in the chest. ED Course/Re-evaluation: EKG, chest x-ray, oral medications ordered Placed on a Detainer as intoxicated and unable to be discharged to the [facility] due to behavioral problems. Patient does not meet M1 hold criteria. EKG shows normal sinus rhythm with a rate of 92 beats per minute. No ST changes. 2330: Breathalyzer was 283 Suspect alcohol intoxication and alcoholic gastritis without signs of hemorrhage. Given p.o. Pepcid 2237: Chest x-ray my read shows no signs effusion, no opacity, no pneumothorax. End of shift. Signed over to Dr. Arreola pending re-evaluation once patient is more sober. I suspect patient will be discharged home on a proton pump inhibitor or H2 sharon. This patient was seen under the supervision of my secondary supervising physician. I evaluated care for this patient independently. Discussed this patient with Dr. Arreola who did not see the patient. (Tanna Looney) PHYSICIAN DOCUMENTATION: The patient was evaluated and managed by the Physician [employer]. My co- signature indicates that I have reviewed this chart and I agree with the findings and plan of care as documented. I am the secondary supervising physician. 6:20 a.m.- Patient has been stable throughout the night sleeping for all of it. Plan for ambulation and discharge. (Elvia Arreola) Differential Diagnosis: Chest pain including but not limited to myocardial ischemia, pulmonary embolus, chest wall pain, pleural inflammation and pulmonary infectious causes. (Tanna Looney) - Data Points Medications Given: Discontinued Medications Famotidine (Pepcid) 20 mg PO EDNOW ONE Stop: 10/28/17 23:08 Last Admin: 10/28/17 23:19 Dose: 20 mg Departure - Departure Disposition: Home, Routine, Self-Care Clinical Impression: Alcoholic intoxication without complication Alcoholic gastritis without bleeding Qualifiers: Chronicity: acute Qualified Code(s): K29.20 - Alcoholic gastritis without bleeding Condition: Good Instructions: Gastritis (ED), Alcohol Use Disorder (ED) Referrals: [facility],. [Clinic] - As per Instructions
[2017-10-29 06:23] VITALS: BP 129/76
== END 2017-10-29 06:57 | disposition home or self-care (01) ==
LOC: EDUNIT#
DX: K29.20 Alcoholic gastritis without bleeding (principal); F10.129 Alcohol abuse with intoxication, unspecified; F17.200 Nicotine dependence, unspecified, uncomplicated

== ENCOUNTER 2017-10-29 21:05 | Emergency (ER) | payer MEDICAID ==
--- NOTE | 2017-10-29 21:04 | EDPHY ---
H & P Time Seen by Provider: 10/29/17 21:04 Constitutional: Initial Vital Signs Temperature (C) 36.7 C 10/29/17 21:09 Heart Rate 99 10/29/17 21:09 Respiratory Rate 16 10/29/17 21:09 Blood Pressure 124/94 H 10/29/17 21:09 O2 Sat (%) 94 10/29/17 21:09 O2 Delivery Mode Room Air Allergies/Adverse Reactions: No Allergies Allergy (Unknown, Verified 11/01/17 00:44) Home Medications: Medication Instructions Recorded Albuterol [Ventolin Hfa Inhaler] 200 puffs IH 07/25/17 Medical Decision Making ED Course/Re-evaluation: CHIEF COMPLAINT: Alcohol intoxication. HISTORY OF PRESENT ILLNESS: The patient is a chronic alcoholic living on the [address]. Patient drinks on a daily basis and obtains whatever alcohol is available. Patient was found by bystanders who called EMS system. Patient has had multiple ER visits over the last several years for the same complaint. He was seen in this emergency department last night but was discharged and immediately started to consume alcohol. Patient denies any injuries denies loss of consciousness denies any recent trauma. Patient denies co-ingestion. Patient denies suicidal or homicidal behavior. Patient is not allowed at the [facility] due to behavioral issues. [facility] has placed this patient on an [facility] hold even though he is not allowed in the [facility]. REVIEW OF SYSTEMS: A 10 point review of systems was performed and is negative with the exception of the elements mentioned in the history of present illness. PHYSICAL EXAM: General Appearance: Smells of alcohol, alert, well hydrated, appropriate, and non-toxic appearing. Head: Atraumatic without scalp tenderness or obvious injury Eyes: Pupils equal, round, reactive to light and accommodation, EOMI, no trauma , no injection. Ears: Clear bilaterally, no perforation, normal landmarks Nose: Atraumatic, no rhinorrhea, clear. Throat: There is no erythema or exudates, no lesions, normal tonsils, mucus membranes moist. Neck: Supple, 2+ carotid upstroke, nontender, no lymphadenopathy. Respiratory: No retractions, no distress, no wheezes, and no accessory muscle use. Lungs are clear to auscultation bilaterally. Cardiovascular: Regular rate and rhythm, no murmurs, rubs, or gallops. Bilateral carotid, radial, dorsalis pedis, and posterior tibial pulses intact. Good capillary refill all extremities. Gastrointestinal: Abdomen is soft, nontender, non-distended, no masses, no rebound, no guarding, no peritoneal signs. Musculoskeletal: Normal active ROM of all extremities, atraumatic. Neurological: Alert, appropriate, and interactive. The patient has normal DTRs and non-focal cranial nerves, motor, sensory, and cerebellar exam. Skin: No rashes, good turgor, no nodules on palpation. PAST MEDICAL HISTORY: Alcoholic PAST SURGICAL HISTORY: Cholecystectomy SOCIAL HISTORY: Homeless, single, not employed DIFFERENTIAL DIAGNOSIS: The differential diagnosis for the patient's altered mental status included but was not limited to hypoglycemia, infectious process, electrolyte abnormality, head injury, neurologic process, anemia, cardiac process, and intoxicants. MEDICAL DECISION MAKING: I serially examined this patient since the patient's arrival here in the emergency department. The patient continues to become more and more sober with each examination. He is not allowed at the [facility] due to behavioral problems. 2146: I serially questioned the patient and the patient's story given initially has not changed. The patient still denies any trauma, any head injury, and any illicit drug use. At this point, the patient is walking the department freely and is clinically sober. He does not want to stay at this hospital and cannot be accepted at the [facility]. We're discharging the patient in stable condition. (Luis Alberto Mahan) Departure - Departure Disposition: Home, Routine, Self-Care Clinical Impression: Alcoholic intoxication, Alcohol abuse Condition: Good Instructions: Alcohol Intoxication (ED), Abuse of Alcohol (ED) Additional Instructions: 1. Please refrain from abusing alcohol. 2. Return to the emergency department immediately for fever, vomiting, confusion , headache, abdominal pain or other worsening of condition. 3. Followup with your primary care physician within 72 hours for reevaluation. Referrals: NONE *PRIMARY CARE P,. [Primary Care Provider] - As per Instructions [facility],. [Clinic] - As per Instructions Report Scribed for: Luis Alberto Mahan Report Scribed by: Maddy Lugo Date of Report: 10/29/17 Time of Report: 21:05
[2017-10-29 21:10] VITALS: BP 124/94
--- NOTE | 2017-12-22 16:39 | EDPHY ---
H & P Stated Complaint: ETOH Time Seen by Provider: 10/29/17 21:04 HPI/ROS: HPI: This is a 37-year-old male who presents with Chief Complaint: [facility] hold Location: psych Quality: [facility] hold Duration: today Signs and Symptoms: No chest pain, no shortness of breath, no abdominal pain, no nausea, no vomiting Timing:acute on chronic Severity: Mild Context: Patient is brought in by police on an Addiction recovery hold. According to the police, patient cannot go to the [facility] at this time as it has not been 24 hr since his last visit. The police decided to bring the patient here instead. Upon arrival patient is slightly unsteady on his feet but can walk independently. Patient is currently calm and cooperative. He has no physical complaints at this time. Patient currently denies any suicidal ideation, homicidal ideation, hallucinations. 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 Unemployed. Family history noncontributory. CONSTITUTIONAL: Untidy intoxicated adult white male, calm and cooperative, awake and alert, no obvious distress HEENT: Atraumatic and normocephalic, PERRL, EOMI. Nares patent; no rhinorrhea; no nasal mucosal edema. Tympanic membranes clear. Oropharynx clear, no exudate and moist pink mucosa. Airway patent. No lymphadenopathy. No meningismus. Cardiovascular: Normal S1/S2, regular rate, regular rhythm, without murmur rub or gallop. PULMONARY/CHEST: Symmetrical and nontender. Clear to auscultation bilaterally. Good air movement. No accessory muscle usage. ABDOMEN: Soft, nondistended, nontender, no rebound, no guarding, no peritoneal signs, no masses or organomegaly. No CVAT. EXTREMITIES: 2/2 pulses, strength 5/5, no deformities, no clubbing, no cyanosis or edema. NEUROLOGICAL: no focal neuro deficits. GCS 15. SKIN: Warm and dry, no erythema. no rash. Good capillary refill. 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 PSH- R FEMUR W/ HARDWARE, RECONSTRUCTIVE JAW, SAMANTHA--- ALL R/T TRAUMA - Social History Smoking Status: Current every day smoker Constitutional: Initial Vital Signs Temperature (C) 36.7 C 10/29/17 21:09 Heart Rate 99 10/29/17 21:09 Respiratory Rate 16 10/29/17 21:09 Blood Pressure 124/94 H 10/29/17 21:09 O2 Sat (%) 94 10/29/17 21:09 O2 Delivery Mode Room Air Allergies/Adverse Reactions: No Allergies Allergy (Unknown, Verified 11/16/17 23:33) Home Medications: Medication Instructions Recorded Albuterol [Ventolin Hfa Inhaler] 200 puffs IH 07/25/17 Medical Decision Making ED Course/Re-evaluation: Patient is not welcome at the [facility]. Patient does not meet M1 hold or Detainer criteria. Patient was observed in the emergency room for several hours. He is ambulatory without any deficits. He will be discharged with referral to [facility]. This patient was seen under the supervision of my secondary supervising physician. I evaluated care for this patient independently. Discussed this patient with Dr. Mahan who did see the patient. Differential Diagnosis: Differential diagnosis includes but is not limited to intracranial injury, concussion, depression, anxiety, intoxicant use. Departure - Departure Disposition: Home, Routine, Self-Care Clinical Impression: Alcohol abuse Alcoholic intoxication Qualifiers: Complication of substance-induced condition: with delirium Qualified Code(s): F10.921 - Alcohol use, unspecified with intoxication delirium Condition: Good Instructions: Alcohol Intoxication (ED), Abuse of Alcohol (ED) Additional Instructions: 1. Please refrain from abusing alcohol. 2. Return to the emergency department immediately for fever, vomiting, confusion , headache, abdominal pain or other worsening of condition. 3. Followup with your primary care physician within 72 hours for reevaluation. Referrals: [facility],. [Clinic] - As per Instructions
== END 2017-10-29 22:01 | disposition home or self-care (01) ==
LOC: EDUNIT#
DX: F10.129 Alcohol abuse with intoxication, unspecified (principal); F17.200 Nicotine dependence, unspecified, uncomplicated

== ENCOUNTER 2017-10-30 23:21 | Emergency (ER) | payer MEDICAID ==
--- NOTE | 2017-10-30 23:27 | EDPHY ---
H & P Smoking Status: Current every day smoker Time Seen by Provider: 10/30/17 23:25 HPI/ROS: CHIEF COMPLAINT: "I drank again" HISTORY OF PRESENT ILLNESS: 37-year-old homeless male well known to emergency department staff arrives via police after he was found sleeping, suspected alcohol usage. He has no complaints of pain or discomfort. No trauma. No fall. No suicidal or homicidal ideation. PRIMARY CARE PROVIDER: REVIEW OF SYSTEMS: A ten point review of systems was performed and is negative with the exception of the items mentioned in the HPI PAST MEDICAL & SURGICAL HISTORY: Alcoholism SOCIAL HISTORY: Positive for alcohol use PHYSICAL EXAM (Prior to examination, patient consented to physical exam, hands were washed and my usual and customary physical exam procedures followed) 1) GENERAL: poorly kept, foul smelling, somnolent, smells of alcohol.. Appears to be in no acute distress. 2) HEAD: Normocephalic, atraumatic 3) HEENT: Pupils equal, round, reactive to light bilaterally. Sclera anicteric. No raccoon eyes no Galo sign. No rhinorrhea. No otorrhea. Nasopharynx, oropharynx, clear, no lesions. Ears bilaterally with normal tympanic membranes. 4) NECK: Full range of motion, no meningeal signs. 5) LUNGS: Clear auscultation bilaterally, no wheezes, no rhonchi, no retractions. 6) HEART: Regular rate and rhythm, no murmur, no heave, no gallop. 7) ABDOMEN: No guarding, no rebound, no focal tenderness,, 8) MUSCULOSKELETAL: Moving all extremities, no focal areas of tenderness, no obvious trauma. No peripheral edema or discoloration. 9) BACK: No CVA tenderness, no midline vertebral tenderness, no fluctuance, no step-off, no obvious trauma, no visual or palpable abnormality. 10) SKIN: No rash, no petechiae. 11) Psychiatric: Patient is oriented X 3, there is no agitation. DIFFERENTIAL DIAGNOSIS: In no particular orderincluding but not limited to hypoglycemia, infectious process, electrolyte abnormality, head injury and intoxicants. (Jeremy,Bethanie Edwina) Constitutional: Initial Vital Signs Temperature (C) 36.4 C 10/30/17 23:31 Heart Rate 95 10/30/17 23:31 Respiratory Rate 18 10/30/17 23:31 Blood Pressure 152/93 H 10/30/17 23:31 O2 Sat (%) 91 L 10/30/17 23:31 O2 Delivery Mode Room Air Allergies/Adverse Reactions: No Allergies Allergy (Unknown, Verified 10/30/17 23:36) Home Medications: Medication Instructions Recorded Albuterol [Ventolin Hfa Inhaler] 200 puffs IH 07/25/17 MDM/Departure - [facility] ED Course/Re-evaluation: 11:31 p.m:. patient is off of the emergency department bed walking to the bathroom without assistance with stable steady gait clear speech pattern awake alert oriented person place time events. He is clinically sober. He is not [facility]. He would like to be discharged. He will be discharged. Care of patient under supervision of secondary supervising physician Dr Ibrahim. (Bethanie Luna) 0412: Patient ambulated well throughout the emergency room this stable gait. He is clinically sober and safe for discharge. (Jorge Alberto Ibrahim) - Depart Disposition: Home, Routine, Self-Care Clinical Impression: Alcohol abuse Condition: Good Instructions: Abuse of Alcohol (ED) Additional Instructions: Please consider long-term sobriety from alcohol Referrals: [facility],. [Clinic] - 1-2 days without fail
[2017-10-31 04:21] VITALS: BP 170/91
== END 2017-10-31 04:19 | disposition home or self-care (01) ==
LOC: EDUNIT#
DX: F10.10 Alcohol abuse, uncomplicated (principal); F17.200 Nicotine dependence, unspecified, uncomplicated

== ENCOUNTER 2017-11-01 00:38 | Emergency (ER) | payer MEDICAID ==
[2017-11-01 00:45] VITALS: BP 142/100
--- NOTE | 2017-11-01 02:10 | EDPHY ---
H & P Stated Complaint: "CP x2 weeks", wants to resources for ETOH/homelessness Time Seen by Provider: 11/01/17 01:43 HPI/ROS: Chief Complaint: Alcohol intoxication HPI: 37-year-old homeless male well known to this emergency department with a history of chronic alcohol abuse. Patient brought in by EMS tonight requesting help to stop drinking. Patient has a history of chronic chest pain and initially told EMS he was having chest pain tonight, however he is telling me that he said that just they would bring him here so that he can get help. Denies any falls. No injuries. No shortness of breath. No nausea or vomiting. Patient admits to drinking large amounts of vodka tonight. Denies being suicidal or homicidal. ROS: 10 point Review of Systems is negative except as noted in the HPI. Social History: Homeless, heavy daily alcohol, Family History: non-contributory Physical Exam: Gen: Awake, slurred speech, unkempt, alcohol HEENT: Nose: no rhinorrhea Eyes: PERRLA, EOMI Mouth: Moist mucosa Neck: Supple, no JVD Chest: nontender, lungs clear to auscultation Heart: S1, S2 normal, no murmur Abd: Soft, non-tender, no guarding Back: no CVA tenderness, no midline tenderness Ext: no edema, non-tender Skin: no rash Neuro: CN II-XII intact, Sensation grossly intact, Strength 5/5 in bilateral upper and lower extremities - Personal History Current Tetanus/Diphtheria Vaccine: Yes Tetanus Vaccine Date: 2011 - Medical/Surgical History Hx Asthma: No Hx Chronic Respiratory Disease: No Hx Diabetes: No Hx Cardiac Disease: No Hx Renal Disease: No Hx Cirrhosis: No Hx Alcoholism: Yes Hx HIV/AIDS: No Hx Splenectomy or Spleen Trauma: No Other PMH: PMH- ETOH, 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 PSH- R FEMUR W/ HARDWARE, RECONSTRUCTIVE JAW, SAMANTHA--- ALL R/T TRAUMA - Social History Smoking Status: Current every day smoker Constitutional: Initial Vital Signs Temperature (C) 36.6 C 11/01/17 00:43 Heart Rate 104 H 11/01/17 00:43 Respiratory Rate 18 11/01/17 00:43 Blood Pressure 142/100 H 11/01/17 00:43 O2 Sat (%) 92 11/01/17 00:43 O2 Delivery Mode Room Air Allergies/Adverse Reactions: No Allergies Allergy (Unknown, Verified 11/01/17 00:44) Home Medications: Medication Instructions Recorded Albuterol [Ventolin Hfa Inhaler] 200 puffs IH 07/25/17 Medical Decision Making ED Course/Re-evaluation: Patient is now awake and appropriate. Ambulating unassisted to the bathroom. No current complaints. Patient is tolerating oral fluids. Patient is ready for discharge with sober ride. Departure - Departure Disposition: Home, Routine, Self-Care Clinical Impression: Alcoholic intoxication Condition: Good Instructions: Alcohol Intoxication (ED) Referrals: NONE *PRIMARY CARE P,. [Primary Care Provider] - As per Instructions [facility] 24 Hours [Outside] - As per Instructions
== END 2017-11-01 06:38 | disposition home or self-care (01) ==
LOC: EDUNIT#
DX: F10.129 Alcohol abuse with intoxication, unspecified (principal); F17.200 Nicotine dependence, unspecified, uncomplicated

== ENCOUNTER 2017-11-16 23:24 | Emergency (ER) | payer MEDICAID ==
[2017-11-17 04:29] VITALS: BP 140/86
--- NOTE | 2017-11-17 05:07 | EDPHY ---
H & P Stated Complaint: ETOH BROUGHT OM BY POLICE Time Seen by Provider: 11/16/17 23:29 HPI/ROS: CHIEF COMPLAINT: Alcohol intoxication HISTORY OF PRESENT ILLNESS: Patient was found by bystanders to be severely intoxicated and therefore they called EMS system. Patient denies any injuries , denies loss of consciousness, denies any recent trauma. Patient denies coingestion, patient denies suicidal or homicidal behavior. REVIEW OF SYSTEMS: Constitutional: No fever, no chills. Eyes:No visual changes. ENT: No sore throat. Respiratory: No cough, no shortness of breath. Cardiac: No chest pain. Gastrointestinal: No abdominal pain, vomiting or diarrhea. Genitourinary: No hematuria. Musculoskeletal: No back pain. Skin: No rashes. Neurological: No headache. PAST MEDICAL HISTORY: Alcoholism PAST SURGICAL HISTORY: None SOCIAL HISTORY: Chronic alcohol abuse, homeless, has a 6-year-old PHYSICAL EXAM: General Appearance: Alert, well hydrated, appropriate, and non-toxic appearing. Head: Atraumatic without scalp tenderness or obvious injury Eyes: Pupils equal, round, reactive to light, no injection. Ears: Clear bilaterally, no perforation, normal landmarks Nose: Atraumatic, no rhinorrhea, clear. Throat: mucus membranes moist. Neck: Supple, non-tender, no lymphadenopathy. Respiratory: No retractions, no distress, no wheezes, and no accessory muscle use. Lungs are clear to auscultation bilaterally. Cardiovascular: Regular rate and rhythm, no murmurs, rubs, or gallops. Gastrointestinal: Abdomen is soft, non-tender, non-distended Musculoskeletal: Normal active ROM of all extremities, abrasions to left forearm Neurological: Alert, appropriate, and interactive. Moves all extremities equally. Skin: No rashes, good turgor, no nodules on palpation. MEDICAL DECISION MAKING: I serially examined this patient since the patient's arrival here in the emergency department. The patient continues to become more and more sober with each examination. I serially questioned the patient and the patient's story given initially has not changed. The patient still denies any trauma, any head injury, and any illicit drug use. At this point, the patient is walking the department freely and is clinically sober. The patient is no longer welcome at the [facility]. He was allowed to sober here for several hours and was eventually discharged. He was eventually apologetic about his behavior earlier. 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 PSH- R FEMUR W/ HARDWARE, RECONSTRUCTIVE JAW, SAMANTHA--- ALL R/T TRAUMA - Social History Smoking Status: Current every day smoker Constitutional: Initial Vital Signs Temperature (C) 36.8 C 11/16/17 23:25 Heart Rate 111 H 11/16/17 23:25 Respiratory Rate 20 11/16/17 23:25 Blood Pressure 144/89 H 11/16/17 23:25 O2 Sat (%) 91 L 11/16/17 23:25 O2 Delivery Mode Nasal Cannula O2 (L/minute) 2 Allergies/Adverse Reactions: No Allergies Allergy (Unknown, Verified 11/16/17 23:33) Home Medications: Medication Instructions Recorded Albuterol [Ventolin Hfa Inhaler] 200 puffs IH 07/25/17 Departure - Departure Disposition: Home, Routine, Self-Care Clinical Impression: Alcoholic intoxication Qualifiers: Complication of substance-induced condition: with delirium Qualified Code(s): F10.921 - Alcohol use, unspecified with intoxication delirium Condition: Good Instructions: Alcohol Intoxication (ED) Referrals: [facility],. [Clinic] - As per Instructions
== END 2017-11-17 05:16 | disposition home or self-care (01) ==
DX: F10.921 Alcohol use, unspecified with intoxication delirium (principal); F17.200 Nicotine dependence, unspecified, uncomplicated

== ENCOUNTER 2018-02-25 20:07 | Emergency (ER) | payer MEDICAID ==
--- NOTE | 2018-02-25 20:25 | EDPHY ---
H & P Time Seen by Provider: 02/25/18 20:24 HPI/ROS: CHIEF COMPLAINT: Withdrawal HISTORY OF PRESENT ILLNESS: Chronic alcohol, wants"to get off the alcohol "because as of this next week on Tuesday or Tuesday the PR will be paying for and providing a place for him to stay. He will be off the streets. Last drink at 7:00 a.m. Today. Feels shaky, nausea and vomiting, panicky. Symptoms moderate. Arrives from detox. REVIEW OF SYSTEMS: Eye: no change in vision, no double vision ENT: no sore throat Cardiac: no chest pain or syncope Pulmonary: no cough or SOB Abdomen: No abdominal pain or diarrhea Musculoskeletal: no back pain Skin: no rash Neuro: no headache Constitutional: no fever : no urinary symptoms A comprehensive 10 point review of systems is otherwise negative aside from elements mentioned in the history of present illness. PAST MEDICAL HISTORY: Alcoholism. Multiple previous traumatic injuries. Social history: Last alcohol 7:00 a.m. General Appearance: Alert and conversant, cooperative. Eyes: No scleral icterus. Extraocular motion intact. ENT, Mouth: Normal mucous membranes. Respiratory: Normal respiratory effort, breath sounds equal, lungs are clear to auscultation. Cardiovascular: Regular rate and rhythm. Gastrointestinal: Abdomen is soft and non tender. Neurological: Alert, face symmetric, normal motor and sensory in extremities. Fluent speech, mildly tremulous. Skin: Warm and dry, no rashes. Musculoskeletal: No peripheral edema. Psychiatric: Not agitated. Emergency Department course/MDM: Prior to my evaluation nurse reports a CIWA score of 12, medicated with oral benzodiazepines. 2 mg oral Ativan, Zofran ODT. Heart rate 98 down to 81 after medication, feels stable to return to detox. Smoking Status: Current every day smoker Constitutional: Initial Vital Signs Temperature (C) 36.8 C 02/25/18 20:13 Heart Rate 98 02/25/18 20:13 Respiratory Rate 16 02/25/18 20:13 Blood Pressure 141/104 H 02/25/18 20:13 O2 Sat (%) 93 02/25/18 20:13 O2 Delivery Mode Room Air Allergies/Adverse Reactions: No Allergies Allergy (Unknown, Verified 02/25/18 20:15) Home Medications: Medication Instructions Recorded NK [No Known Home Meds] 02/25/18 Medical Decision Making Differential Diagnosis: Differential considered including but not limited to alcohol withdrawal, metabolic abnormality, anxiety, seizure - Data Points Medications Given: Discontinued Medications Chlordiazepoxide (Librium 25 Mg Prepack#6) 1 btl TAKEHOME EDNOW ONE Stop: 02/25/18 20:30 Last Admin: 02/25/18 20:30 Dose: 1 btl Lorazepam (Ativan) 2 mg PO EDNOW ONE Stop: 02/25/18 20:30 Last Admin: 02/25/18 20:30 Dose: 2 mg Ondansetron HCl (Zofran Odt) 4 mg PO EDNOW ONE Stop: 02/25/18 20:41 Last Admin: 02/25/18 20:44 Dose: 4 mg Departure - Departure Disposition: Home, Routine, Self-Care Clinical Impression: Alcohol withdrawal Qualifiers: Complication of substance-induced condition: uncomplicated Qualified Code(s): F10.230 - Alcohol dependence with withdrawal, uncomplicated Condition: Good Instructions: Chlordiazepoxide (By mouth) Referrals: [facility],. [Clinic] - As per Instructions NONE *PRIMARY CARE P,. [Primary Care Provider] - As per Instructions ([facility])
[2018-02-25] MEDS ORDERED: LORazepam 1 MG TAB ONE (20:26)
[2018-02-25] MEDS ORDERED: CHLORDIAZEPOXIDE 25MG PREPK#6 BTL TAKEHOME ONE ×2 (20:27→20:29)
[2018-02-25] MEDS ORDERED: LORazepam 1 MG TAB PO ONE (20:29)
[2018-02-25] MEDS ORDERED: ONDANSETRON DISINTEGRATING 4 MG TAB PO ONE (20:40)
[2018-02-25 21:38] VITALS: BP 136/95
== END 2018-02-25 21:35 | disposition home or self-care (01) ==
DX: F10.239 Alcohol dependence with withdrawal, unspecified (principal); F17.200 Nicotine dependence, unspecified, uncomplicated

== ENCOUNTER 2018-03-01 17:39 | Emergency (ER) | payer MEDICAID ==
[2018-03-01 17:46] VITALS: BP 92/72
[2018-03-01] MEDS ORDERED: CHLORDIAZEPOXIDE 25MG PREPK#6 BTL TAKEHOME ONE (17:47)
--- NOTE | 2018-03-01 17:53 | EDPHY ---
H & P Time Seen by Provider: 03/01/18 17:39 HPI/ROS: CHIEF COMPLAINT: Fell asleep HISTORY OF PRESENT ILLNESS: Patient is with a staff member from detox, he was taking him in his car to detox in the patient fell sleep. Mr. Black admits to lots of alcohol today but denies any other ingestions, denies suicidal ideation , any other medical complaints. No recent fall or injury. REVIEW OF SYSTEMS: Eye: no change in vision ENT: no sore throat Cardiac: no chest pain or syncope Pulmonary: no cough or SOB. Specifically says he is not short of breath. Abdomen: no vomiting, diarrhea, abdominal pain Musculoskeletal: no back pain Skin: no rash Neuro: no headache Constitutional: no fever : no urinary symptoms A comprehensive 10 point review of systems is otherwise negative aside from elements mentioned in the history of present illness. PAST MEDICAL HISTORY: Alcoholism, previous traumatic brain injury and multiple orthopedic injuries. Social history: Recent alcohol General Appearance: Alert and conversant, cooperative. Slurring his speech. Eyes: No scleral icterus. Pupils equal reactive extraocular motion intact. ENT, Mouth: Normal mucous membranes. No tongue laceration or abrasion. Respiratory: Normal respiratory effort, breath sounds equal, lungs are clear to auscultation. Cardiovascular: Regular rate and rhythm. Gastrointestinal: Abdomen is soft and non tender. Neurological: Alert, face symmetric, normal motor and sensory in extremities. He is able to walk in the emergency department. He is able to answer questions appropriately. He is slurring his speech which is consistent with his self- reported alcohol ingestion. Skin: Warm and dry, no rashes. Musculoskeletal: No peripheral edema. Psychiatric: Not agitated. Emergency Department course/MDM: The detox staff member would like to take him to detox which I think is reasonable, with Librium. Initially got very agitated and upset about being in the emergency department which I think is responsible for elevated heart rate at the time the vital signs are taken. When I examine him, his heart rate is approximately 100 or just under, and he is much more calm. Is able answer questions appropriately. Appears to be intoxicated, but appropriate for detox at this time. Cooperative at discharge. Smoking Status: Current every day smoker Constitutional: Initial Vital Signs Temperature (C) 36.6 C 03/01/18 17:44 Heart Rate 119 H 03/01/18 17:44 Respiratory Rate 20 03/01/18 17:44 Blood Pressure 92/72 L 03/01/18 17:44 O2 Sat (%) 91 L 03/01/18 17:44 O2 Delivery Mode Room Air Allergies/Adverse Reactions: No Allergies Allergy (Unknown, Verified 02/25/18 20:15) Home Medications: Medication Instructions Recorded NK [No Known Home Meds] 02/25/18 MDM/Departure - MDM Medications Given: Discontinued Medications Chlordiazepoxide (Librium 25 Mg Prepack#6) 1 btl [facility] ED[facility] ONE Stop: 03/01/18 17:48 Last Admin: 03/01/18 17:58 Dose: 1 btl - Depart Disposition: Home, Routine, Self-Care Instructions: Alcohol Intoxication (ED), Chlordiazepoxide (By mouth) Additional Instructions: Pt is medically cleared for [facility] Referrals: [facility],. [Clinic] - As per Instructions
== END 2018-03-01 17:59 | disposition home or self-care (01) ==
DX: F10.929 Alcohol use, unspecified with intoxication, unspecified (principal)